=== PATIENT | female | born 1970 | race Caucasian/White ===

== ENCOUNTER 2025-01-02 09:35 | Emergency (ER) | payer OTHER, SELFPAY ==
[2025-01-02] VITALS (7 sets, daily range): BP systolic 103–149; BP diastolic 70–135; PULSE 81; BMI 23.8
--- NOTE | 2025-01-02 09:49 | ED.GENMED ---
History of Present Illness
General
Chief Complaint: Abdominal Pain
Source: patient
Exam Limitations: none
Time Seen by Provider: 01/02/25 09:49
Nursing documentation reviewed up to this point in time: agreed with
History of Present Illness
History of Present Illness:
Note:
CHIEF COMPLAINT(S)
Severe abdominal pain, nausea, vomiting, dizziness, and headache.
HISTORY OF PRESENT ILLNESS
The patient is a 54-year-old female who presented with complaints of severe abdominal pain, nausea, vomiting, dizziness, and headache. The onset of symptoms began yesterday when the patient experienced the room spinning for the first time without
any preceding alcohol consumption, noting she had not ingested alcohol for six to eight months. The vomiting was described as a yellow, bitter, and frothy liquid. The patient vomited four times and reported that she did not eat anything the previous
day. She attempted to alleviate her symptoms with water and Dramamine, which provided partial relief. The headache was described as a spasm located in multiple areas, including the right side of the head. She reported frequent episodes of similar
attacks occurring every three to four months but with no definitive diagnosis in previous evaluations. The patient tried Tylenol for relief and experienced pain referred to the upper abdomen area, most notably on palpation. She denies diarrhea. She
is currently experiencing moderate dizziness, manageable with Dramamine, and mild persisting headache. The patient mentioned existing on pantoprazole for gastric symptoms. She expressed concern over a potential link to gastrointestinal issues,
prompted by her daughters advice to track dietary triggers, but found no apparent dietary provocation for her current episode.
PAST SURGICAL HISTORY
Lump removal from the left breast.
MEDICATIONS
Pantoprazole.
REVIEW OF SYSTEMS
- Gastrointestinal: Severe abdominal pain, nausea, vomiting with yellow bitter substance. No diarrhea reported.
- Neurological: Dizziness, headache described as spasm-like, head pain in specific locations.
- Constitutional: Denies recent alcohol intake; rare social consumption reported.
PHYSICAL EXAM
General: Alert, no acute distress.
Skin: Warm, dry.
Head: Normocephalic, atraumatic.
Neck: Supple, trachea midline.
Eyes, Ears, Nose, Mouth, and Throat: Oral mucosa moist.
Cardiovascular: Normal peripheral perfusion, no edema.
Respiratory: Respirations are non-labored.
Gastrointestinal: Tenderness in upper abdomen, with pain located on the right side. Abdomen nondistended.
Back: Normal range of motion, normal alignment.
Musculoskeletal: Normal range of motion, normal strength.
Neurological: Alert and oriented to person, place, time, and situation, no focal neurological deficit observed.
Psychiatric: Cooperative, appropriate mood & affect.
PROBLEM LIST
- Acute Severe Abdominal Pain
- Acute Nausea and Vomiting
- Acute Dizziness and Headache
PLAN
- Perform blood tests and urinalysis to evaluate underlying causes.
- Order abdominal ultrasound to assess the liver, gallbladder, and pancreas.
- Consider physical therapy evaluation for vertigo.
- Schedule a computed tomography scan of the brain to assess headache etiology.
- Consider follow-up with a tanning wheel filler for comprehensive evaluation of recurrent abdominal symptoms.
DIFFERENTIAL DIAGNOSIS
The Differential Diagnosis includes, in no particular order and is not limited to:
- Biliary Colic
- Gastroenteritis
- Peptic Ulcer Disease
- Vertigo
- Migraine Headache
- Hepatic Dysfunction
- Pancreatitis
- Vestibular Neuritis
- Gallbladder Disease
- Alcohol Withdrawal or Intolerance
CARE-UPDATE
01/02/25 - 12:52
CT head revealed no acute findings. Ultrasound of abdomen showed no equivocal findings. Lab results indicate no signs of hepatitis or pancreatitis. Physical therapy evaluated the patient and recommends further follow-up on an outpatient basis.
Patient is stable for discharge with follow-up advised with primary care and gastroenterology.
Disposition:
SUMMARY OF ENCOUNTER
The patient is a 54-year-old female who presented to the emergency department with severe abdominal pain located in the epigastric and right upper quadrant, nausea, vomiting, dizziness, and headache. The headache was described as spasm-like and
located in multiple areas. On initial evaluation, she experienced severe episodes of dizziness. She had a differential that considered several gastrointestinal and neurological causes including biliary colic, gastroenteritis, peptic ulcer disease,
and vertigo among others. Initial workup included a CT scan of the head which revealed no acute findings, and an abdominal ultrasound which showed no significant abnormalities. Lab results showed no signs of cholecystitis or pancreatitis. She was
managed with symptom relief for her pain and dizziness, and recommendations for follow-up care.
DISPOSITION
Stable for discharge with follow-up advised with primary care and gastroenterology.
PLAN
- Blood tests and urinalysis were performed to evaluate underlying causes, which were negative for acute pathology.
- CT of the head was done to evaluate headache etiology, revealing no acute findings.
- Abdominal ultrasound was performed showing no significant findings related to current symptoms.
- Recommend follow-up with a tanning wheel filler for further evaluation of recurrent abdominal symptoms.
- Physical therapy was evaluated for dizziness and recommendations for follow-up were made on an outpatient basis.
INDEPENDENT REVIEW OF LABS AND INTERPRETATION OF TESTS
- My independent review of abdominal ultrasound showed no equivocal findings.
- My independent review of the CT head revealed no acute findings.
- Lab results indicated no signs of hepatitis or pancreatitis.
FOLLOW-UP INSTRUCTIONS
Patient is advised to follow up with primary care and gastroenterology as recommended for further evaluation of symptoms and management.
MEDICATION RECONCILIATION
- Continue with pantoprazole as ongoing treatment for gastric symptoms.
MEDICAL DECISION MAKING
-Complexity of Data Reviewed: Chronic conditions affecting care include consideration of gastrointestinal disorders and vertigo.
-Data:
- Category 1
- Reviewed imaging studies were CT head and abdominal ultrasound.
- Category 3
- Managed with physical therapy evaluation for dizziness and recommendations for outpatient follow-up.
-Risk:
- Consideration of Admission/Observation: Escalation of care including admission/observation was considered given the complexity and risk of the patients presenting complaint but deemed safe for outpatient management due to stable work-up results,
symptom management, and reliable follow-up.
DIAGNOSIS
- Dizziness, unspecified (R42)
- Abdominal pain, unspecified (R10.9)
- Headache, unspecified (R51)
Phy Exam
Physical Exam
Physical Exam:
.
Course
Orders/Labs/Results
Orders:
Orders
01/02/25 09:59
CT Head W/o Iv Contrast Urgent
Comment:
Reason For Exam: headache, dizzy
IV Insert/Care/Rem.- Treatment PRN
Physical Therapy Consult [Pt Eval And Treat] Urgent
Treatment: vestibular eval
Activity Level: Ambulate
US Abdomen Complete/Upper Urgent
Comment:
Reason For Exam: epigastric pain
01/02/25 10:03
Complete Blood Count/With Diff Urgent
Comprehensive Metabolic Panel Urgent
Lipase Urgent
Urinalysis Reflex To Culture Urgent
Date Specimen was Collected: 01/02/25
Time Specimen was Collected: 10:01
Urine Microscopic Reflex Cult Urgent
01/02/25 12:30
Acetaminophen [Tylenol] 650 mg PO NOW STA
Abnormal Lab Results
01/02/25
10:03
MPV 10.5 H fL
(7.4-10.4)
ALT 36 H U/L
(0-35)
Urine Ketones 1+ A
(Negative)
Ur Occult Blood Reflex 1+ A
(Negative)
Urine Bacteria (Reflex) Few A
(Negative)
Urine Albumin (Reflex) 1+ A
(Neg - Trace)
01/02/25 10:03
01/02/25 10:03
Vital Signs
Initial and Last Documented VS:
Initial Vital Signs
Temp Pulse Resp BP Pulse Ox
98.1 F 82 18 140/87 97
01/02/25 09:36 01/02/25 09:36 01/02/25 09:36 01/02/25 09:36 01/02/25 09:36
Last Documented Vital Signs
Temp Pulse Resp BP Pulse Ox
97.6 F 59 20 103/70 97
01/02/25 12:43 01/02/25 12:43 01/02/25 12:43 01/02/25 12:43 01/02/25 12:43
*Pulse Oximetry
SaO2: 97
Oxygen Mode of Delivery: Room air
Patient hypoxic: no
*Critical Care Note
Total Time (30-74mins, 75-104mins- exclusive of procedures): Not Applicable
ED Attending Note
-
Portions of this chart may have been created with voice recognition software.� Occasional wrong word or��sound alike� substitutions may have occurred due to the inherent limitations of voice recognition software.
Discharge Plan
Departure
Patient Disposition: Home (Routine Discharge)
Date of Disposition: 01/02/25
Time of Disposition: 12:20
Patient with high blood pressure during this ER visit?: Yes
Condition: Good
Discharge Problem:
Acute epigastric pain, Dizziness
Instructions: Dizziness, Abdominal Pain, BLOOD PRESSURE
Referrals:
Lopez Renee MD [Family Provider, Internal Medicine] - Call in 1-3 days for appt
Activity Restrictions/Additional Instructions:
Follow up with gastroenterology. Return for any concerns.
Interventions
Interventions:
*Risk Screen - Suicide Last Done: 01/02/25 09:36
*General Assessment Last Done: 01/02/25 09:36
*Neglect/Abuse Screening Last Done: 01/02/25 09:36
*ED- Fall Risk Assessment Last Done: 01/02/25 09:55
*ED COVID-19 Vaccine History Last Done: 01/02/25 10:05
*Nursing Disposition Last Done: 01/02/25 12:43
OV-Usqyvl-Obgjvhkhox Assessment Last Done: 01/02/25 10:05
ED- Cardiac Assessment Last Done: 01/02/25 12:43
ED- Neurological Assessment Last Done: 01/02/25 09:56
ED Swallowing Screen Last Done: 01/02/25 09:55
Discharge Date and Time
Discharge Date/Time: 01/02/25 12:51
Print Language: ALBANIAN
[2025-01-02 10:21] LABS: Hematocrit 43.2 % (37.0-47.0); Hemoglobin 14.4 g/dL (12.0-16.0); Mean Corp Hgb Conc. 33.3 g/dL (33.0-37.0); Mean Corpuscular Volume 90.8 fL (81.0-99.0); Nucleated Red Blood Cells % 0 %; Platelet Count 162 10^3/uL (130-400); Red Cell Dist. Width 11.9 % (11.5-14.5)
[2025-01-02 10:23] LABS: Urine Character Clear (Clear)
[2025-01-02 10:49] LABS: ALT (SGPT) 36 U/L (0-35); AST (SGOT) 25 U/L (14-36); Albumin 4.7 g/dl (3.5-5.0); Alkaline Phosphatase 82 U/L (38-126); Blood Urea Nitrogen 13 mg/dl (7-17); Calcium 9.5 mg/dl (8.4-10.2); Carbon Dioxide 28 mmol/L (22-30); Chloride 102 mmol/L (98-107); Estimated Creatinine Clearance 88 ml/min; Glucose 92 mg/dl (70-99); Lipase 95 U/L (23-300); Potassium 4.2 mmol/L (3.5-5.1); Sodium 136 mmol/L (135-145); Total Protein 7.3 g/dl (6.3-8.2); eGFR > 60.00
[2025-01-02 11:11] LABS: Urine Urothelial Cell 0-2 /LPF (FEW)
[2025-01-02 11:12] LABS: Urine Red Blood Cell 0-2 /HPF (0-2)
[2025-01-02] MEDS: TYLENOL 650 MG PO (12:46)
== END 2025-01-02 12:51 | disposition home or self-care (01) ==
LOC: EMR 09:35
PROVIDERS: EMERGENCY PHYSICIAN Emergency Medicine; FAMILY PHYSICIAN Internal Medicine
DX: R10.13 Epigastric pain (principal); R42 Dizziness and giddiness; R03.0 Elevated blood-pressure reading, without diagnosis of hypertension
CPT/HCPCS: 99284; 70450; 76700; 80053; 81003; 81015; 83690; 85025